=== PATIENT | female | born 1975 | race Caucasian/White ===

== ENCOUNTER → 2017-01-29 | Outpatient (CLI) | payer MEDICAID, OTHER | LOC: BMCIMAGING 07:14 | PROVIDERS: ATTEND Nurse Practitioner Women's Health | DX: N83.202 Unspecified ovarian cyst, left side (principal); D25.2 Subserosal leiomyoma of uterus; Z97.5 Presence of (intrauterine) contraceptive device ==

== ENCOUNTER → 2017-09-07 | Outpatient (CLI) | payer MEDICAID | LOC: BMCIMAGING 11:01 | DX: N63.20 Unspecified lump in the left breast, unspecified quadrant (principal) ==